=== PATIENT | female | born 1960 | race Caucasian/White ===

== ENCOUNTER 2016-10-29 20:19 | Emergency (ER) | payer OTHER ==
[~2016-10-29] VITALS: Ht 177.8 cm; Wt 136.1 kg
[~2016-10-29 20:19] MED LIST: KEFLEX500 M1 PO; SYNTHROID150 MCG PO; SYNTHROID75 MCG PO; VITAMIN B COMP1 EAC1 PO
--- NOTE | 2016-10-29 22:13 | ED UPPER/LOWER EXTREMITY COMPL ---
History of Present Illness General Chief Complaint: Upper Extremity Problem Stated Complaint: "PAINS IN MY R ARM" X COUPLE DAYS PER PT Source: patient, family Exam Limitations: no limitations Vital Signs & Intake/Output Vital Signs & Intake/Output Vital Signs Date Time Temp Pulse Resp B/P Pulse O2 O2 Flow FiO2 Ox Delivery Rate 10/29 2336 98.3 86 18 126/80 98 Room Air 10/292 98.2 83 16 115/76 98 Room Air Room Air ED Intake and Output 10/30 0000 10/29 1200 Intake Total 0 Output Total Balance 0 Intake, Oral 0 Patient 300 lb Weight Allergies Coded Allergies: No Known Allergies (10/29/16) Reconcile Medications Cephalexin (Keflex) 500 MG CAPSULE 1 CAP PO TID INFECTION Levothyroxine Sodium (Synthroid) 150 MCG TABLET 1 TAB PO DAILY THYROID ( Reported) Levothyroxine Sodium (Synthroid) 75 MCG TABLET 1 TAB PO DAILY THYROID ( Reported) Oxycodone HCl/Acetaminophen (Percocet 5-325 MG Tablet) 5 MG-325 MG TABLET 1 TAB PO BID PRN PAIN Vitamin B Complex 1 EACH TABLET 1 TAB PO DAILY SUPPLEMENT (Reported) Triage Note: PT TO TRIAGE WITH RIGHT ARM SORENESS STARTING YESTERDAY WITH NO TRAUMA OR AGGRIVATION. NO CHANGE IN SENSATION. STATES HER ARM FEELS TIGHT WITH MOVEMENT AND STATES ITS HARD TO MOVE DUE TO PAIN/TIGHTNESS Triage Nurses Notes Reviewed? yes Onset: Gradual Duration: getting worse Timing: recent history Severity: severe Severity Numbers: 10 Pain/Injury Location: Right: Arm. Method of Injury: unknown Modifying Factors: Improves With: rest. Worsens With: movement. HPI: Patient is a 56-year-old female with past medical history of hypothyroidism and hypertension who presents to emergency room with a 36 hour history of gradual onset of right-sided upper arm pain which she has noticed radiation of pain and swelling to the distal aspect of her upper arm to her fingers. Pain is unrelenting denies any mechanism of injury Patient tried ibuprofen with no relief of symptoms. Denies any redness or warmth to the region denies any paresthesia Denies any history of DVT or PE. Denies any respiratory complaints such as chest pain shortness of breath (MAXIME YOUNG,CHARLENE) Past History Travel History Traveled to [place] past 21 day No Medical History Any Pertinent Medical History? see below for history Neurological: NONE EENT: NONE Cardiovascular: hypertension Respiratory: NONE Gastrointestinal: NONE Hepatic: NONE Renal: NONE Musculoskeletal: NONE Psychiatric: NONE Endocrine: hypothyroidism Blood Disorders: NONE Cancer(s): UTERINE CASTING MOLDER/Reproductive: NONE Tetanus Vaccine: 04/04/16 Surgical History Surgical History: none Psychosocial History What is your primary language Estonian Tobacco Use: Never used ETOH Use: denies use Illicit Drug Use: denies illicit drug use Family History Hx Contributory? No (CHARLENE FRANCO) Review of Systems Review of Systems Constitutional: Reports: no symptoms. EENTM: Reports: no symptoms. Respiratory: Reports: no symptoms. Cardiovascular: Reports: see HPI, peripheral edema. Gastrointestinal/Abdominal: Reports: no symptoms. Genitourinary: Reports: no symptoms. Musculoskeletal: Reports: see HPI, muscle pain, muscle stiffness. Skin: Reports: no symptoms. Neurological/Psychological: Reports: no symptoms. Hematologic/Endocrine: Reports: no symptoms. Immunological: Reports: no symptoms. All Other Systems: Reviewed and Negative (CHARLENE FRANCO) Physical Exam Physical Exam General Appearance: no apparent distress, obese Neurologic/Tendon: normal sensation, normal motor functions, normal tendon functions, responds to pain, no evidence tendon injury, no pulse deficit Skin: intact, normal color, warm/dry Comments: Well-developed well-nourished no apparent distress. HEENT: Atraumatic, extraocular motion intact Neck: Supple, no lymphadenopathy Back: Nontender Respiratory: No respiratory distress Extremities: Right upper extremity noted uniform swelling compared bilaterally to left upper extremity Generalized pain noted decreased active range of motion noted with shoulder flexion and extension and abduction Right elbow full active range of motion Right wrist full active range of motion Right radial pulse +2 Dermatomes intact Neuro: Alert and oriented x3 Psych: Mood affect normal, normal memory normal judgment. (CHARLENE FRANCO) Progress Differential Diagnosis: arterial insufficiency, cellulitis, CHF, compartment syndrome, contusion, dislocation, DVT, fracture, gout, septic arthritis, sprain, tendon injury Plan of Care: Orders Procedure Date/time Status Durable Medical Equipment 10/29 8996 Active Patient this time shows no neurovascular compromise Denies any mechanism injury and does have pain and swelling to the right upper extremity however no cardiovascular or rest or symptoms at this time. Ultrasound is not available for evaluation of DVT in which patient will be treated prophylactically. Patient did weigh 158 kg or which she will receive the Lovenox dose. Patient was given referral for ultrasound. Patient also had a shoulder immobilizer placed which pre-and post-neurovascular was intact. Patient was strongly advised to follow-up with the ultrasound as one was provided for her prescription tomorrow (CHARLENE FRANCO) Departure Departure Disposition: HOME OR SELF CARE Condition: Stable Clinical Impression Primary Impression: Right arm pain Secondary Impressions: DVT of upper extremity (deep vein thrombosis) Referrals: EDMUND CRUZ,CHAS (PCP/Family) Additional Instructions: As discussed begin to use the shoulder immobilizer placed on you in the emergency room for support and stability. YOU have been given a prescription for an ultrasound and please call the department of radiology tomorrow first thing at 8 AM at [phone] to make an appointment for an ultrasound of your right upper arm. Begin the prescription of Percocet for breakthrough pain relief. If the ultrasound is positive YOU WILL be sent to the emergency room. If negative and if symptoms continue in 2 days follow-up with your primary care doctor. Prescriptions waiting a [facility] pharmacy Departure Forms: Customer Survey General Discharge Information Prescriptions: Current Visit Scripts Oxycodone HCl/Acetaminophen (Percocet 5-325 MG Tablet) 1 TAB PO BID PRN PAIN #10 TAB (CHARLENE FRANCO) PA/TISSUE REWINDER Co-Sign Statement Statement: ED Attending supervision documentation- [] I saw and evaluated the patient. I have also reviewed all the pertinent lab results and diagnostic results. I agree with the findings and the plan of care as documented in the PA's/TISSUE REWINDER's documentation. [X] I have reviewed the ED Record and agree with the PA's/TISSUE REWINDER's documentation. [] Additions or exceptions (if any) to the PAs/TISSUE REWINDER's note and plan are summarized below: [] (LORA CRUZ,SIGIFREDO Billy)
[2016-10-29] MEDS ORDERED: PERCOCET 5-3251 EACH PO (22:19)
[2016-10-29 23:36] VITALS: BP 126/80
== END 2016-10-29 23:43 ==
LOC: ERH 20:19
DX: I82.621 Acute embolism and thrombosis of deep veins of right upper extremity (principal)
CPT/HCPCS: 96372; J1650